=== PATIENT | male | born 1945 | race Caucasian/White ===

== ENCOUNTER 2024-05-14 11:59 | Inpatient (IN) | payer MEDICARE, OTHER ==
[~2024-05-14] VITALS: Ht 180.3 cm; Wt 67.1 kg
[2024-05-14] MEDS ORDERED: POLY17PO4 PO (12:19)
[2024-05-14] MEDS ORDERED: SENN8.6T19 PO (12:19)
[2024-05-14] MEDS ORDERED: FLUT1BLS4 IH (12:19)
[2024-05-14] MEDS ORDERED: ACET-2154 PO (12:19)
[2024-05-14] MEDS ORDERED: ALBU6.7H9 IH ×2 (12:19)
[2024-05-14] MEDS ORDERED: IPRA3AMP23 NEB (12:19)
[2024-05-14] MEDS ORDERED: ARIP5TAB10 PO (12:19)
[2024-05-14] MEDS ORDERED: QUET50TA PO (12:19)
[2024-05-14 13:33] LABS: BASOPHILS % (AUTO) 0.5 % (0.0-2.0); EOSINOPHILS # (AUTO) 0.3 K/uL (0.0-0.7); EOSINOPHILS % (AUTO) 3.2 % (0.0-7.0); HEMATOCRIT 36.9 % (36.7-47.1); HEMOGLOBIN 12.3 g/dL (12.5-16.3); LYMPHOCYTES # (AUTO) 0.9 K/uL (0.8-4.8); LYMPHOCYTES % (AUTO) 9.1 % (20.5-51.5); MEAN CORPUSCULAR HEMOGLOBIN 29.1 uug (23.8-33.4); MEAN CORPUSCULAR HGB CONC 34 g/dL (32.5-36.3); MONOCYTES # (AUTO) 0.9 K/uL (0.1-1.30); MONOCYTES % (AUTO) 9.2 % (0.0-11.0); NEUTROPHILS # (AUTO) 7.4 K/uL (1.8-8.9); PLATELET COUNT (AUTO) 372 K/uL (152-348); RED BLOOD CELL COUNT(AUTO) 4.24 MIL/uL (4.06-5.63); RED CELL DISTRIBUTION WIDTH 14.1 % (12.1-16.2); WHITE BLOOD COUNT (AUTO) 9.5 K/uL (3.6-10.2)
[2024-05-14 13:36] LABS: *BILIRUBIN,URIN NEGATIVE (NEGATIVE); *BLOOD, URINE NEGATIVE (NEGATIVE); *CLARITY,URINE CLEAR (CLEAR); *COLOR,URINE YELLOW (YELLOW); *KETONES,URINE NEGATIVE (NEGATIVE); *PROTEIN,URINE NEGATIVE (NEGATIVE); *UROBILINOGEN,URINE 0.2 E.U./dl (NORMAL); LEUKOCYTE ESTERASE ,URINE NEGATIVE (NEGATIVE); NITRITE, URINE NEGATIVE (NEGATIVE); UGLUCOSE NEGATIVE (NEGATIVE)
[2024-05-14 13:36] LABS: DIFFERENTIAL COMMENT 1
[2024-05-14 13:43] LABS: AMMONIA 15 umol/L (11-32)
[2024-05-14 14:13] LABS: CARBON DIOXIDE 32 mmol/L (21-32); CHLORIDE 104 mmol/L (98-107); CREATININE 0.9 mg/dL (0.6-1.3); GLUCOSE 104 mg/dL (74-106); SODIUM SERUM 142 mmol/L (136-145); UREA NITROGEN, BLOOD 13 mg/dL (7-18)
[2024-05-14] MEDS ORDERED: CYANOCOBALAMIN 1000 MCG/ML VIAL ONE (14:48)
[2024-05-14] MEDS: CYANOCOBALAMIN 1000 MCG/ML VIAL IM ONE (14:53)
[2024-05-14] MEDS ORDERED: MAGNESIUM HYDROXIDE 30 ML LIQUID UDC PO PRN (18:00)
[2024-05-14 18:38] VITALS: BP 117/76; TEMP 98.2; O2SAT 99
[2024-05-14] MEDS ORDERED: ALBUTEROL SULFATE 8 GM HFA.AER.AD IH PRN (19:30)
[2024-05-14] MEDS ORDERED: MIRALAX 17 GM POWD.PACK PO PRN (19:30)
[2024-05-14] MEDS: LORAZEPAM 1 MG TABLET PO PRN (20:22)
[2024-05-14] MEDS: ACETAMINOPHEN 325 MG TABLET PO PRN (20:23)
[2024-05-15] MEDS: ALBUTEROL SULFATE 2.5 MG/3 ML NEBU NEB PRN (00:16)
[2024-05-15] MEDS: ZOLPIDEM 5 MG TABLET PO PRN (00:24)
[2024-05-15 08:03] LABS: ALANINE AMINOTRANSFERASE 20 U/L (16-63); ALBUMIN 3.1 g/dL (3.4-5.0); ALKALINE PHOSPHATASE 78 U/L (50-136); ASPARTATE AMINOTRANSFERASE 11 U/L (15-37); BILIRUBIN,TOTAL 1.8 mg/dL (0.2-1.0); CALCIUM 8.5 mg/dL (8.5-10.1); CARBON DIOXIDE 31 mmol/L (21-32); CHLORIDE 102 mmol/L (98-107); CREATININE 0.8 mg/dL (0.6-1.3); GLUCOSE 99 mg/dL (74-106); SODIUM SERUM 140 mmol/L (136-145); TOTAL PROTEIN, SERUM 6.4 g/dL (6.4-8.2); UREA NITROGEN, BLOOD 12 mg/dL (7-18)
[2024-05-15 08:28] VITALS: BP 98/58; TEMP 97.5; O2SAT 95
[2024-05-15] MEDS: FLUTICASONE/VILANTEROL 1 EACH BLST.W.DEV INH SCH (09:00)
[2024-05-15 15:41] VITALS: BP 90/47; TEMP 98.6; O2SAT 96
[2024-05-15 20:38] VITALS: BP 96/49; TEMP 98.2; O2SAT 96
[2024-05-16 08:22] VITALS: BP 141/74; TEMP 98.1; O2SAT 97
[2024-05-16] MEDS: risperiDONE 1 MG/ML UDC PO SCH (09:00)
[2024-05-16] MEDS: DIVALPROEX SPRINKLE 125 MG CAP.SPRINK PO SCH (09:00)
[2024-05-16 16:10] VITALS: BP 112/74; TEMP 98; O2SAT 100
[2024-05-16 16:18] VITALS: TEMP 98; O2SAT 100
[2024-05-16 20:00] VITALS: BP 85/42; TEMP 97.8; O2SAT 95
[2024-05-17 01:09] VITALS: O2SAT 98
[2024-05-17 01:19] VITALS: O2SAT 99
[2024-05-17 08:08] VITALS: BP 90/69; TEMP 98; O2SAT 98
[2024-05-17] MEDS ORDERED: LORAZEPAM 1 MG TABLET PO PRN (10:00)
[2024-05-17 15:20] VITALS: BP 100/62; TEMP 98; O2SAT 98
[2024-05-17] MEDS: LORAZEPAM 0.5 MG TABLET PO PRN (21:57)
[2024-05-17 22:13] VITALS: O2SAT 98
[2024-05-17 22:24] VITALS: O2SAT 99
[2024-05-18 14:28] VITALS: O2SAT 94
[2024-05-18 14:43] VITALS: O2SAT 99
[2024-05-18 15:29] VITALS: BP 99/44; TEMP 97.8; O2SAT 90
[2024-05-18] MEDS: ENSURE ENLIVE (VAN) 240 ML LIQUID PO SCH (17:21)
[2024-05-19 08:00] VITALS: BP 87/45; TEMP 97.6; O2SAT 98
[2024-05-19] MEDS: OLANZAPINE 10 MG VIAL IM ONE (08:05)
[2024-05-19 16:00] VITALS: BP 100/56; TEMP 97.2; O2SAT 97
[2024-05-19 21:21] VITALS: BP 98/56; TEMP 97.3; O2SAT 95
[2024-05-20] MEDS: risperiDONE 1 MG/ML UDC PO SCH (08:16)
[2024-05-20] MEDS: VALPROIC ACID 250 MG/5 ML LIQUID UDC PO SCH (08:16)
[2024-05-20 08:24] VITALS: BP 108/58; TEMP 98; O2SAT 100
[2024-05-20 16:02] VITALS: BP 112/61; TEMP 97.5; O2SAT 100
[2024-05-20 19:55] VITALS: BP 110/68; TEMP 97.6; O2SAT 92
[2024-05-21 08:22] VITALS: BP 103/45; TEMP 97.6; O2SAT 96
[2024-05-21 17:24] VITALS: O2SAT 96
[2024-05-21 17:39] VITALS: O2SAT 99
[2024-05-21] MEDS: AMOXICILLIN-CLAVUL 500-125MG TABLET PO SCH (22:33)
[2024-05-22] VITALS (7 sets, daily range): BP systolic 99–128; BP diastolic 54–58; TEMP 97.6–98.4; O2SAT 93–99
[2024-05-22] MEDS ORDERED: AMOXICILLIN-CLAVUL 875-125MG TABLET ONE (01:24)
[2024-05-22] MEDS ORDERED: AMOXICILLIN-CLAVUL 500-125MG TABLET ONE (01:27)
[2024-05-23 08:18] VITALS: BP 105/43; TEMP 98.3; O2SAT 100
[2024-05-23 16:18] VITALS: BP 112/62; TEMP 97.9; O2SAT 98
[2024-05-24] VITALS (7 sets, daily range): BP systolic 106–138; BP diastolic 55–71; TEMP 97.8–98.1; O2SAT 93–99
[2024-05-24] MEDS ORDERED: GUAIFENESIN/DEXTROMETHORPHAN 5 ML UDC PO PRN (13:30)
[2024-05-24] MEDS: IPRATROPIUM BROMIDE 0.5 MG/2.5 ML NEBU NEB SCH (13:59)
[2024-05-24] MEDS: predniSONE 20 MG TABLET PO SCH (15:37)
[2024-05-25 08:14] VITALS: BP 111/59; TEMP 98; O2SAT 96
[2024-05-25 09:07] VITALS: O2SAT 95
[2024-05-25 09:22] VITALS: O2SAT 99
[2024-05-25] MEDS: MAG HYDROX/AL HYDROX/SIMETH 30 ML LIQUID UDC PO PRN (13:36)
== END 2024-05-25 14:55 | DRG 885 ==
LOC: ER 12:16 → GPS 12:30
PROVIDERS: ADMIT Psychiatry & Neurology Psychiatry; ATTEND Nurse Practitioner Acute Care
DX: F25.0 Schizoaffective disorder, bipolar type (principal); J69.0 Pneumonitis due to inhalation of food and vomit; E44.1 Mild protein-calorie malnutrition; F03.93 Unspecified dementia, unspecified severity, with mood disturbance; F03.94 Unspecified dementia, unspecified severity, with anxiety; F03.92 Unspecified dementia, unspecified severity, with psychotic disturbance; Z91.199 Patient's noncompliance with other medical treatment and regimen due to unspecified reason; F29 Unspecified psychosis not due to a substance or known physiological condition; E88.09 Other disorders of plasma-protein metabolism, not elsewhere classified; J44.9 Chronic obstructive pulmonary disease, unspecified; Z66 Do not resuscitate; Z79.51 Long term (current) use of inhaled steroids; Z79.899 Other long term (current) drug therapy; F17.210 Nicotine dependence, cigarettes, uncomplicated; E53.8 Deficiency of other specified B group vitamins
CPT/HCPCS: 36415; 71045; 85025; 94640; 94664; 94760; J2358; J3420; J3590; J7512